=== PATIENT | female | born 1985 ===

== ENCOUNTER → 2021-05-04 | Outpatient (CLI) | payer BC ==
[~2021-05-04] MED LIST: ALBU90OI INH; CALCA500CH PO; IBUP400 PO; OMEP10ER PO; PROACE50 PO
== END | disposition home or self-care (01) ==
LOC: LAB SHORT 07:38
DX: D22.5 Melanocytic nevi of trunk (principal)
CPT/HCPCS: 88305

== ENCOUNTER → 2021-06-01 | Outpatient (CLI) | payer BC | END | disposition home or self-care (01) | LOC: LAB SHORT 11:04 | DX: D22.5 Melanocytic nevi of trunk (principal) | CPT/HCPCS: 88305 ==

== ENCOUNTER → 2023-05-09 | Outpatient (CLI) | payer BC | LOC: LAB 09:51 → LAB SHORT 09:51 | DX: D48.5 Neoplasm of uncertain behavior of skin (principal) | CPT/HCPCS: 88305 ==